=== PATIENT | male | born 1990 | race American Indian/Alaskan Native ===

== ENCOUNTER 2018-01-27 22:20 | Emergency (ER) | payer OTHER ==
[2018-01-27 23:07] VITALS: BP 97/64
[2018-01-27] MEDS ORDERED: BOOSTRIX IM ONE (23:20)
--- NOTE | 2018-01-27 23:47 | XRay Report ---
FINAL REPORT EXAM: XR HAND 2V LT HISTORY: left thumb pain TECHNIQUE: Four views of left hand PRIORS: None. FINDINGS: No fracture is identified. No dislocation seen. Joint spaces are within normal limits. No erosive bony change identified. Carpal bones maintain normal alignment. Distal radius and ulna are intact. No radiopaque foreign bodies seen. There is some soft tissue irregularity noted between the thumb and 2nd digit. IMPRESSION: No evidence for fracture or radiopaque foreign body
--- NOTE | 2018-01-27 23:50 | XRay Report ---
FINAL REPORT EXAM: XR KNEE BILAT 3V HISTORY: bilateral knee pain TECHNIQUE: Bilateral knees three views right and three views left PRIORS: None. FINDINGS: No fracture is identified. No dislocation seen. No evidence of joint effusion. Patella demonstrates normal positioning. No acute bony abnormality identified. IMPRESSION: Negative knee series
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
== END 2018-01-28 00:55 ==
LOC: ED 22:20 → EEVIPCON 22:20 → ED 01-28 00:55
DX: S80.212A Abrasion, left knee, initial encounter (principal); S80.211A Abrasion, right knee, initial encounter; S60.512A Abrasion of left hand, initial encounter; J45.909 Unspecified asthma, uncomplicated; F17.200 Nicotine dependence, unspecified, uncomplicated; F12.10 Cannabis abuse, uncomplicated; W19.XXXA Unspecified fall, initial encounter; Y93.89 Activity, other specified; Y99.8 Other external cause status; Y92.410 Unspecified street and highway as the place of occurrence of the external cause
CPT/HCPCS: 90471; 90715; 99283